=== PATIENT | female | born 1960 | race Caucasian/White ===

== ENCOUNTER 2022-11-21 20:44 | Emergency (ER) | payer OTHER ==
[~2022-11-21] VITALS: Ht 160 cm; Wt 77.1 kg
[2022-11-21 20:44] VITALS: BP 122/64
--- NOTE | 2022-11-21 20:47 | NUR ---
PT BIBA BLS ER BED 9
--- NOTE | 2022-11-21 20:55 | NUR ---
ER physician assessing patient.
--- NOTE | 2022-11-21 21:06 | NUR ---
Patient resting in bed, A/Ox4, chest rise and fall symmetrical, no s/s of distress, patient on monitor.
[2022-11-21 21:47] LABS: BASOPHILS # (AUTO) 0.2 K/uL (0.00-0.22); BASOPHILS % (AUTO) 1.5 % (0.0-2.0); EOSINOPHILS # (AUTO) 0.2 K/uL (0-0.4); EOSINOPHILS % (AUTO) 1.6 % (0.0-4.0); HEMATOCRIT 37.7 % (36-48); HEMOGLOBIN 12.3 g/dL (12.0-16.0); LYMPHOCYTES # (AUTO) 1.1 K/uL (2.5-16.5); LYMPHOCYTES % (AUTO) 9.7 % (20.5-51.1); MEAN CORPUSCULAR HEMOGLOBIN 29 pg (27-31); MEAN CORPUSCULAR HGB CONC 33 g/dL (33-37); MEAN CORPUSCULAR VOLUME 88.3 fL (80-94); MONOCYTES # (AUTO) 0.8 K/uL (0.8-1.0); MONOCYTES % (AUTO) 7.4 % (1.7-9.3); NEUTROPHILS # (AUTO) 9.2 K/uL (1.8-7.7); NEUTROPHILS % (AUTO) 79.8 % (42.2-75.2); PLATELET COUNT (AUTO) 333 K/uL (140-450); RED BLOOD CELL COUNT(AUTO) 4.27 MIL/uL (4.20-5.40); RED CELL DISTRIBUTION WIDTH 18.2 % (11.6-13.7); WHITE BLOOD COUNT (AUTO) 11.5 K/uL (4.8-10.8)
[2022-11-21 22:06] LABS: PROTHROMBIN TIME 9.6 secs (10.8-13.4)
--- NOTE | 2022-11-21 23:04 | NUR ---
Patient resting in bed, A/Ox4, chest rise and fall symmetrical, no s/s of distress, patient on monitor. Addendum: 11/21/22 at 2304 by [id number] Patient resting in bed, A/Ox4, chest rise and fall symmetrical, no c/o pain or s/s of distress, patient on monitor.
--- NOTE | 2022-11-21 23:50 | NUR ---
Patient discharged with v/s stable. Written and verbal after care instructions given and explained. Patient verbalized understanding. Ambulatory with steady gait. All questions addressed prior to discharge. Advised to follow up with PMD.
[2022-11-22 00:04] VITALS: BP 115/74
== END 2022-11-21 23:50 | disposition home or self-care (01) ==
LOC: MED 20:44
DX: I77.0 Arteriovenous fistula, acquired (principal); N18.6 End stage renal disease; Z79.899 Other long term (current) drug therapy
CPT/HCPCS: 36415; 85025; 85610; 85730; 99283